=== PATIENT | female | born 1940 | race Caucasian/White ===

== ENCOUNTER 2017-06-23 13:40 | Emergency (ER) | payer MEDICARE, BC ==
--- NOTE | 2017-06-23 14:39 | EDM.PDOC ---
ED HPI GENERAL MEDICAL PROBLEM - General Chief Complaint: General Stated Complaint: LOW BLOOD SUGAR Time Seen by Provider: 06/23/17 14:27 Source of Information: Reports: Patient History Limitations: Reports: No Limitations - History of Present Illness INITIAL COMMENTS - FREE TEXT/NARRATIVE: pt nearly passed out at [facility]. She was found to have a bs of 40. She called the ambulance and sugar was givn to the pot to get the sugar up to 150. Onset: Today Duration: Hour(s): Associated Symptoms: Reports: Diaphoresis, Other (low bs. ) Generalized Pain Score (Numeric/FACES): 5 - Related Data Allergies Allergy/AdvReac Type Severity Reaction Status Date / Time lisinopril Allergy Mild Cough Verified 06/23/17 13:54 oxycodone Allergy Mild Drowsiness Verified 06/23/17 13:54 Sulfa (Sulfonamide Allergy Mild Rash Verified 06/23/17 13:52 Antibiotics) tramadol Allergy Mild Drowsiness Verified 06/23/17 13:53 Home Meds: Home Meds *Humolog Insulin Pump 60 units INJECT ASDIRECTED 06/23/17 [History] Levothyroxine 125 mcg PO ACBREAKFAST 06/23/17 [History] Losartan [Cozaar] 50 mg PO DAILY 06/23/17 [History] amLODIPine [Norvasc] 2.5 mg PO DAILY 06/23/17 [History] Past Medical History HEENT History: Reports: Hard of Hearing, Impaired Vision Cardiovascular History: Reports: Hypertension [employer] History: Reports: , Spontaneous Musculoskeletal History: Reports: Fracture Other Musculoskeletal History: fx l 3 Neurological History: Reports: Concussion Endocrine/Metabolic History: Reports: Diabetes, Type I, IDDM, Other (See Below) Other Endocrine/Metabolic History: Insulin pump - Infectious Disease History Infectious Disease History: Reports: Chicken Pox, Measles, Mumps Social & Family History - Tobacco Use Smoking Status *Q: Never Smoker Second Hand Smoke Exposure: No - Caffeine Use Caffeine Use: Reports: Soda - Recreational Drug Use Recreational Drug Use: No ED ROS GENERAL - Review of Systems Review Of Systems: See Below Constitutional: Reports: Weakness, Diaphoresis, Other ( low bs. ) HEENT: Reports: No Symptoms Respiratory: Reports: No Symptoms Cardiovascular: Reports: No Symptoms Endocrine: Reports: Low Glucose GI/Abdominal: Reports: No Symptoms : Reports: No Symptoms Musculoskeletal: Reports: No Symptoms ED EXAM, GENERAL - Physical Exam Exam: See Below Free Text/Narrative:: pt was alert omn arrival. She had a bs of 40 at [facility]. The ambulance had given her sugar and she was above 100, Exam Limited By: No Limitations General Appearance: Alert, No Apparent Distress, Other (pt was concerned why her bs had gone so low when she had just eaten lunch. pupils are equal and reactive. ) Ears: Normal TMs Nose: Normal Inspection Throat/Mouth: Normal Inspection Head: Atraumatic Neck: Normal Inspection Respiratory/Chest: No Respiratory Distress Cardiovascular: Regular Rate, Rhythm GI/Abdominal: Soft, Non-Tender (Female) Exam: Deferred Rectal (Female) Exam: Deferred Back Exam: Normal Inspection Extremities: Normal Inspection Neurological: Alert, Oriented, Normal Cognition Psychiatric: Normal Affect Course - Vital Signs Last Recorded V/S: Last Vital Signs Temp 35.9 C 06/23/17 14:26 Pulse 70 06/23/17 16:23 Resp 16 06/23/17 14:26 BP 160/65 H 06/23/17 16:23 Pulse Ox 93 L 06/23/17 16:23 - Orders/Labs/Meds Labs: Laboratory Tests 06/23/17 06/23/17 06/23/17 Range/Units 14:00 14:00 14:55 WBC 9.0 (4.5-11.0) K/uL RBC 4.33 (3.30-5.50) M/uL Hgb 12.3 (12.0-15.0) g/dL Hct 37.9 (36.0-48.0) % MCV 88 (80-98) fL MCH 28 (27-31) pg MCHC 33 (32-36) % Plt Count 377 (150-400) K/uL Neut % (Auto) 75 H (36-66) % Lymph % (Auto) 12 L (24-44) % [place] % (Auto) 11 H (2-6) % Eos % (Auto) 2 (2-4) % Baso % (Auto) 0 (0-1) % Sodium 143 (140-148) mmol/L Potassium 4.2 (3.6-5.2) mmol/L Chloride 108 (100-108) mmol/L Carbon Dioxide 28 (21-32) mmol/L Anion Gap 6.8 (5.0-14.0) mmol/L BUN 24 H (7-18) mg/dL Creatinine 1.6 H (0.6-1.0) mg/dL Est Cr Clr Drug Dosing 22.92 mL/min Estimated GFR (MDRD) 31 L (>60) Glucose 52 L (74-106) mg/dL Calcium 8.7 (8.5-10.1) mg/dL Total Bilirubin 0.3 (0.2-1.0) mg/dL AST 20 (15-37) U/L ALT 21 (12-78) U/L Alkaline Phosphatase 100 (46-116) U/L Total Protein 6.9 (6.4-8.2) g/dL Albumin 3.2 L (3.4-5.0) g/dL Globulin 3.7 H (2.3-3.5) g/dL Albumin/Globulin Ratio 0.9 L (1.2-2.2) Urine Color Yellow Urine Appearance Clear Urine pH 5.0 (4.5-8.0) Ur Specific [place] 1.020 (1.008-1.030) Urine Protein Negative (NEGATIVE) mg/dL Urine Glucose (UA) Normal (NEGATIVE) mg/dL Urine Ketones Negative (NEGATIVE) mg/dL Urine Occult Blood Negative (NEGATIVE) Urine Nitrite Negative (NEGATIVE) Urine Bilirubin Moderate (NEGATIVE) Urine Urobilinogen Normal (NORMAL) mg/dL Ur Leukocyte Esterase Negative (NEGATIVE) Urine RBC Not seen (0-5) Urine WBC 0-5 (0-5) Ur Epithelial Cells Few Amorphous Sediment Few Urine Bacteria Few Urine Mucus Moderate - Re-Assessments/Exams Free Text/Narrative Re-Assessment/Exam: 06/26/17 07:24 pt was found to have borderline renal funtion . She maintined her sugars good here. She did eat more food after arrival. Departure - Departure Time of Disposition: 17:03 Disposition: Home, Self-Care 01 Condition: Fair Clinical Impression: Hypoglycemia, Renal insufficiency - Discharge Information Instructions: Hypoglycemia, [id number] Referrals: PCP,None [Primary Care Provider] - Forms: ED Department Discharge Care Plan Goals: use insulin with the pump on the lower side of the reccomendations. keep follow up appt next week. push fluids because of the kidney funtion
== END 2017-06-23 17:13 | disposition home or self-care (01) ==
LOC: JP.ED 13:40
DX: E10.65 Type 1 diabetes mellitus with hyperglycemia (principal); N28.9 Disorder of kidney and ureter, unspecified; I10 Essential (primary) hypertension; Y92.512 Supermarket, store or market as the place of occurrence of the external cause; Z88.8 Allergy status to other drugs, medicaments and biological substances; Z88.2 Allergy status to sulfonamides; Z88.5 Allergy status to narcotic agent; Z79.4 Long term (current) use of insulin; Z79.899 Other long term (current) drug therapy
CPT/HCPCS: 36415; 80053; 81001; 85025; 99285